=== PATIENT | female | born 1990 | race Asian ===

== ENCOUNTER 2017-04-09 17:18 | Inpatient (IN) | payer OTHER ==
[~2017-04-09] VITALS: Ht 162.6 cm; Wt 74.0 kg
[2017-04-09] MEDS ORDERED: PRENTAB9 PO (17:37)
[2017-04-09 17:42] VITALS: BP 114/66
[2017-04-09 20:45] VITALS: BP 124/57
[2017-04-09] MEDS ORDERED: LR 1,000 ML IV SCH ×2 (20:57→22:45)
[2017-04-09 21:00] VITALS: BP 120/52
[2017-04-09 21:15] VITALS: BP 120/64
[2017-04-09] MEDS ORDERED: MIDAZOLAM INJ 2 MG/2 ML VIAL (J2250) As Ordered ONE (21:20)
[2017-04-09] MEDS ORDERED: fentaNYL 100 MCG/2 ML INJECTION (J3010) As Ordered ONE (21:21)
[2017-04-09 21:38] LABS: MEAN CORPUSCULAR HEMOGLOBIN 30.7 pg (27.0-33.0); MEAN CORPUSCULAR HGB CONC 34.5 g/dl (32.0-36.5); MEAN CORPUSCULAR VOLUME 89.1 fl (80.0-96.0); RED CELL DISTRIBUTION WIDTH 13.8 % (11.5-14.5); WHITE BLOOD COUNT 17.5 10^3/uL (4.0-10.0)
[2017-04-09] MEDS ORDERED: ONDANSETRON 4MG/2ML VIAL (J2405) As Ordered ONE (21:59)
[2017-04-09] MEDS ORDERED: PHENYLephrine HCL 500 MCG/5 ML (100MCG/ML) SYRINGE (J2370) As Ordered ONE ×2 (21:59→22:31)
[2017-04-09] MEDS ORDERED: ESTROGENS VAGINAL CREAM 30GM As Ordered ONE (22:29)
[2017-04-09] MEDS ORDERED: fentaNYL 100 MCG/2 ML INJECTION (J3010) IV PRN (22:45)
[2017-04-09] MEDS ORDERED: ONDANSETRON 4MG/2ML VIAL (J2405) IV PRN (22:45)
[2017-04-09] MEDS ORDERED: METOCLOPRAMIDE INJ 10MG/2ML VIAL (J2765) IV PRN (22:45)
[2017-04-10] MEDS ORDERED: OXYTOCIN INJ 10 UNITS/ML VIAL (J2590) As Ordered ONE (00:01)
[2017-04-10 00:28] VITALS: BP 111/67
[2017-04-10] MEDS ORDERED: RHOGAM 300 MCG (1500 IU) INJ (J2790) IM SCH (00:45)
[2017-04-10] MEDS ORDERED: ONDANSETRON 4MG/2ML VIAL (J2405) IV PRN (00:45)
[2017-04-10] MEDS ORDERED: METHYLERGONOVINE MALEATE 0.2 MG/ML VIAL (J2210) IM PRN (00:45)
[2017-04-10] MEDS ORDERED: OXYTOCIN INJ 10 UNITS/ML VIAL (J2590) IM ONE (00:45)
[2017-04-10] MEDS ORDERED: PROMETHAZINE 25 MG TAB PO PRN (00:45)
[2017-04-10] MEDS ORDERED: LIDOCAINE 1% MDV INJ 50 ML VIAL INFIL ONE (00:45)
[2017-04-10] MEDS ORDERED: ACETAMINOPHEN 500 MG TAB PO PRN (00:45)
[2017-04-10] MEDS ORDERED: MEASLES,MUMPS,RUBELLA VACCINE INJ (MMR-II) (90707) SC SCH (00:45)
[2017-04-10] MEDS ORDERED: DIBUCAINE 1% OINTMENT 30GM TOP PRN (00:45)
[2017-04-10] MEDS: IBUPROFEN 800 MG TAB PO PRN (01:26)
[2017-04-10 05:53] VITALS: BP 105/58
[2017-04-10] MEDS: PRENATAL VITAMINS CHEWABLE TABLET PO SCH (09:22)
[2017-04-10] MEDS: DOCUSATE SODIUM 100 MG CAP PO SCH ×2 (09:23→19:51)
[2017-04-10 18:03] VITALS: BP 115/65
[2017-04-11 06:10] VITALS: BP 105/61
[2017-04-11 06:35] LABS: MEAN CORPUSCULAR HEMOGLOBIN 30.8 pg (27.0-33.0); MEAN CORPUSCULAR HGB CONC 33.6 g/dl (32.0-36.5); MEAN CORPUSCULAR VOLUME 91.6 fl (80.0-96.0); RED CELL DISTRIBUTION WIDTH 14.4 % (11.5-14.5); WHITE BLOOD COUNT 11.9 10^3/uL (4.0-10.0)
--- NOTE | 2017-04-11 08:05 | IPNPDOC ---
Progress Note Date of Service The patient was seen on 04/11/17 at 08:02. Progress Note PPD#2/POD#2 s/p in ambulance c/b cervical laceration S: Jose L is doing well today. Minimal pain, lochia is minimal, voiding without problem and no BM yet. Tolerating a regular diet, ambulating without difficulty. No f/c/n/v/HUA. Breast feeding without issue. O: normotensive, nml HR, afebrile Abd: soft, non-tender, and FF at U-2/fundus nontender Ext: no c/c/e A/P: Jose L is a 27yo [id number] s/p , PPD#2/POD#2 s/p cervical laceration repair in OR. Vaginal packing and giang removed yesterday and since then lochia minimal and voiding spontaneously without issue. Hemodynamically stable, afebrile, minimal pain. -Discharge home today -Home meds given: motrin, tylenol, colace, lanolin -return precautions discussed at length -return to clinic in 6wk for routine PP visit -desires Mirena for contraception Dr. Umang Freeman MD VS, I&O, 24H, Fishbone Vital Signs/I&O Vital Signs Date Time Temp Pulse Resp B/P (MAP) Pulse Ox O2 Delivery O2 Flow Rate FiO2 04/11/17 06:10 97.5 62 20 105/61 (76) 100 Room Air Laboratory Data CBC/BMP Laboratory Tests 04/11/17 06:18 Red Blood Count 4.19, Mean Corpuscular Volume 91.6, Mean Corpuscular Hemoglobin 30.8, Mean Corpuscular Hemoglobin Concent 33.6, Red Cell Distribution Width 14.4 UMANG FREEMAN MD Apr 11, 2017 08:05
--- NOTE | 2017-04-11 08:12 | DS.PDOC ---
Discharge Summary General Date of Admission Apr 09, 2017 at 20:40 Date of Discharge Apr 11, 2017 Discharge Summary PROCEDURES PERFORMED DURING STAY: repair of cervical laceration in OR ADMITTING DIAGNOSES: 1. Term , delivered in ambulance 2. Cervical laceration, first degree perineal laceration DISCHARGE DIAGNOSES: 1. Term , delivered in ambulance 2. Cervical laceration and first degree perineal lacerations repaired COMPLICATIONS/CHIEF COMPLAINT: Precipitous vaginal delivery HISTORY OF PRESENT ILLNESS: Jose L is a 27 year old [id number] status post delivery of viable term infant in ambulance. She experienced a cervical laceration and first degree perineal laceration which were immediately repaired in the operating room without complication. HOSPITAL COURSE: Routine course after vaginal packing and giang catheter were removed. She remained afebrile and hemodynamically stable and desirous of discharge on day 2. DISCHARGE MEDICATIONS: motrin, tylenol, lanolin, colace ALLERGIES: Please see below. PHYSICAL EXAMINATION ON DISCHARGE: General: Well developed, well nourished Neuro: alert and oriented x 3 Abdomen: soft, non-tender, and fundus firm at U-2/fundus nontender Extremities: no c/c/e LABORATORY DATA: Please see below. IMAGING: none ACTIVITY: vaginal rest for 6 full weeks, no heavy lifting greater than weight of baby. DIET: regular DISCHARGE PLAN: discharge to home today DISCHARGE INSTRUCTIONS: Routine appointment in 6 weeks. Return sooner for fevers/chills/ breast redness or pain/abdominal pain/foul smelling discharge/persistent headaches or visual changes/shortness of breath/chest pain DISCHARGE CONDITION: Stable TIME SPENT ON DISCHARGE: Greater than 20 minutes. Vital Signs/I&Os Vital Signs Date Time Temp Pulse Resp B/P (MAP) Pulse Ox O2 Delivery O2 Flow Rate FiO2 04/11/17 06:10 97.5 62 20 105/61 (76) 100 Room Air Laboratory Data CBC/BMP Laboratory Tests 04/11/17 06:18 Red Blood Count 4.19, Mean Corpuscular Volume 91.6, Mean Corpuscular Hemoglobin 30.8, Mean Corpuscular Hemoglobin Concent 33.6, Red Cell Distribution Width 14.4 Discharge Medications Scheduled Multivitamins/ ( 27-0.8 mg) 1 Tab Tab, 1 TAB PO DAILY, (Reported ) Allergies Coded Allergies: No Known Allergies (Unverified , 04/09/17) UMANG ABDI MD Apr 11, 2017 08:12
[2017-04-11] MEDS: PRENATAL VITAMINS CHEWABLE TABLET PO SCH (08:48)
[2017-04-11] MEDS: DOCUSATE SODIUM 100 MG CAP PO SCH (08:48)
[2017-04-11] MEDS: IBUPROFEN 800 MG TAB PO PRN (09:34)
[2017-04-11] MEDS ORDERED: COLA100C5 PO (10:29)
[2017-04-11] MEDS ORDERED: ACET50TA PO (10:29)
[2017-04-11] MEDS ORDERED: IBUP-1114 PO (10:33)
== END 2017-04-11 11:15 | disposition home or self-care (01) | DRG 776 ==
LOC: M LDO 17:18 → UNDOADMIN 20:40 → M LDI 20:40 → M OBS 04-10 00:27
PROVIDERS: ADMIT Obstetrics & Gynecology; ATTEND Obstetrics & Gynecology
PROC: 0HQ9XZZ Repair Perineum Skin, External Approach (ICD-10-PCS; principal; 2017-04-09 21:01)
DX: Z39.0 Encounter for care and examination of mother immediately after delivery (principal); Z3A.39 39 weeks gestation of pregnancy; O70.0 First degree perineal laceration during delivery

== ENCOUNTER 2017-11-25 08:36 | Emergency (ER) | payer OTHER ==
[2017-11-25 09:30] LABS: KETONE, URINE AUTO RFX NEGATIVE (NEGATIVE); LEUKOCYTE ESTERASE UR AUTO RFX NEGATIVE (NEGATIVE); NITRITE, URINE AUTO RFX NEGATIVE (NEGATIVE); RBC, URINE AUTO RFX 0 /HPF (0-3); SPECIFIC GRAVITY UR AUTO RFX 1.001 (1.002-1.035); SQUAM EPITHELIAL CELL UR AURFX 1 /HPF (0-6); WBC, URINE AUTO RFX 0 /HPF (0-3)
[2017-11-25] MEDS: ACETAMINOPHEN 325 MG TAB PO (09:36)
[2017-11-25] MEDS: NS 1,000 ML IV (09:37)
[2017-11-25 09:40] LABS: BASO # 0.1 10^3/uL (0.0-0.2); BASO % 0.7 % (0.0-1.0); EOS # 0.1 10^3/uL (0.0-0.50); HEMATOCRIT 43.7 % (36.0-47.0); HEMOGLOBIN 14.8 g/dl (12.0-15.5); IMMATURE GRANULOCYTE % 0.3 % (0-3.0); LYMPH # 1.7 10^3/uL (1.5-6.5); LYMPH % 25.3 % (24.0-44.0); MEAN CORPUSCULAR HEMOGLOBIN 29.2 pg (27.0-33.0); MEAN CORPUSCULAR HGB CONC 33.9 g/dl (32.0-36.5); MEAN CORPUSCULAR VOLUME 86.2 fl (80.0-96.0); MONO # 0.4 10^3/uL (0.0-0.8); NEUTROPHILS # 4.6 10^3/uL (1.8-7.7); NEUTROPHILS % 66.7 % (36.0-66.0); PLATELET COUNT, AUTOMATED 268 10^3/uL (150-450); RED BLOOD COUNT 5.07 10^6/uL (4.00-5.40); RED CELL DISTRIBUTION WIDTH 12.9 % (11.5-14.5); WHITE BLOOD COUNT 6.8 10^3/uL (4.0-10.0)
[2017-11-25 10:04] LABS: ALBUMIN 3.9 GM/DL (3.2-5.2); ALBUMIN/GLOBULIN RATIO 0.91 (1.00-1.93); ALKALINE PHOSPHATASE 102 U/L (45-117); ALT/SGPT 17 U/L (12-78); ANION GAP 3 MEQ/L (8-16); AST/SGOT 13 U/L (7-37); BILIRUBIN,TOTAL 0.5 MG/DL (0.2-1.0); BLOOD UREA NITROGEN 12 MG/DL (7-18); CALCIUM LEVEL 9.1 MG/DL (8.5-10.1); CARBON DIOXIDE LEVEL 29 MEQ/L (21-32); CHLORIDE LEVEL 107 MEQ/L (98-107); CREATININE FOR GFR 0.82 MG/DL (0.55-1.30); GLOMERULAR FILTRATION RATE > 60.0 (>60); GLUCOSE, FASTING 94 MG/DL (70-100); POTASSIUM SERUM 3.9 MEQ/L (3.5-5.1); SODIUM LEVEL 139 MEQ/L (136-145); TOTAL PROTEIN 8.2 GM/DL (6.4-8.2)
== END 2017-11-25 11:30 | disposition home or self-care (01) ==
LOC: M ED 08:36
DX: K92.1 Melena (principal); R19.7 Diarrhea, unspecified; Z79.899 Other long term (current) drug therapy
CPT/HCPCS: 80053